=== PATIENT | male | born 1960 | race Caucasian/White ===

== ENCOUNTER → 2016-05-01 | Outpatient (CLI) | payer OTHER ==
--- NOTE | 2016-05-01 13:11 | MR ---
EXAMINATION TYPE: MR brain wo/w cspine wo DATE OF EXAM: 05/01/2016 11:48 AM COMPARISON: Prior MRI brain November 04, 2015. Prior MRI cervical spine July 05, 2015. HISTORY: MS, cervicalgia per order. Additional symptoms of dizziness with bilateral extremity weaknes s and numbness per patient. TECHNIQUE: Multiplanar, multisequence images of the cervical spine, brain, and brainstem are all performed witho ut and with IV contrast, utilizing 20 mL intravenous MultiHance gadolinium contrast is administered i ntravenously. Demyelinating disease protocol with additional Sagittal Flair sequence performed of th e brain and brainstem and PD sagittal sequence of cervical spine. Cervical imaging is performed witho ut contrast only. FINDINGS: BRAIN: T2 Lesions Present : Yes Approximate Number of Lesions: Multiple scattered estimated 50-60 small lesions Locations Identified : No infratentorial involvement seen. Scattered subcortical, deep, and periventr icular lesions present. Size of Reference Lesion(s): 1. 0.5 cm x 0.4 cm x 0.7 cm on axial image 19 and sagittal image 9 likely stable, prior study measur ed adjacent lesions is single lesion left posterior frontal subcortical level. 2 1.0 cm x 0.6 cm x 0.5 cm on axial image 19 and sagittal image 32 right frontal subcortical lesion stable. Enhancing Lesion(s) Present: No T1 Hypointense Lesion(s) Present: Yes Change from Prior: Stable Diffusion weighted images demonstrate no evidence of a recent infarct or other diffusion abnormality. There is no worrisome extra-axial fluid collection. The ventricular system and cisternal spaces ar e normal in size and appearance. The brain volume is age appropriate. Midline structures demonstrate normal morphology. The craniocervical junction appears within normal limits. Post contrast images demonstrate no abnormal enhancement. The dural venous sinuses appear pa tent. Mild mucosal thickening ethmoid sinuses bilaterally are redemonstrated. Globes are intact bilat erally. IMPRESSION: Moderate to severe white matter changes presumed predominantly on basis of patient's know n multiple sclerosis redemonstrated. No significant change from prior study. No new or enhancing lesi ons are clearly seen. C-SPINE: FINDINGS: Sagittal images of the cervical spine show the craniocervical junction to appear within nor mal limits. The cervical and upper thoracic spinal cord is normal in course, caliber, and signal on current study. Faint areas of increased signal are not evident to me. There is persistent slight grad e 1 retrolisthesis of C5 on C6 and C6 on C7. The vertebral body heights are normal. Moderate disc sp eda narrowing and spurring C5-C6 and C6-C7 levels is redemonstrated. Heterogeneous increased T1 and T 2 signal consistent with Modic type II degenerative changes seen at these levels. Axial images show the C2-C3 level to remain within normal limits. Axial images at C3-C4 level show uncovertebral facet degenerative changes bilaterally causing moderat e to severe left and mild right-sided neural foraminal narrowing, some progression on the left side f rom prior study is felt present. Axial images at C4-C5 level show uncovertebral facet degenerative changes causing mild left greater t rodriguez right neural foraminal narrowing. Small central disc protrusion mildly effaces anterior thecal sa c. Axial images at the C5-C6 level show spondylolisthesis and broad-based posterior disc protrusion with posterior spurring effacing anterior thecal sac and causing moderate to advanced bilateral neural fo raminal narrowing. No significant change from prior study is seen. Axial images at C6-C7 level show broad-based central disc protrusion and spondylolisthesis mildly eff acing anterior thecal sac and causing moderate to advanced bilateral neural foraminal narrowing. Axial images at C7-T1 level are felt within normal limits. IMPRESSION: Multilevel degenerative changes in the cervical spine most prominent at C5-C6 and C6-C7 l evel are redemonstrated. Some progression in degenerative findings in the upper to mid cervical spine are noted. No convincing evidence of demyelinating disease involvement in the cervical spine on curr ent study.
== END | disposition home or self-care (01) ==
LOC: RADMRIMAIN 09:57
PROVIDERS: ATTEND Psychiatry & Neurology Neurology
DX: G35 Multiple sclerosis (principal); M47.812 Spondylosis without myelopathy or radiculopathy, cervical region
CPT/HCPCS: 70553; 72141; A9577

== ENCOUNTER → 2016-05-02 | Outpatient (CLI) | payer OTHER ==
--- NOTE | 2016-05-02 11:35 | MR ---
EXAMINATION TYPE: MR tspine/lspine wo con DATE OF EXAM: 05/02/2016 11:17 AM COMPARISON: MRI thoracic spine November 22, 2014 HISTORY: MS, pain and weakness in back and extremities TECHNIQUE: Multiplanar, multisequence imaging of thoracic and lumbar spine are performed without cont rast FINDINGS: T-SPINE: Spinal cord shows normal course, caliber, and signal as it courses the thoracic spine. Vertebral bod y heights and alignment are satisfactory. Disc space heights are maintained. Some scattered small Nubia morl nodes in the lower thoracic spine are noted. Small posterior disc herniation T2-T3 level is rede monstrated on sagittal image 9. Mild heterogeneous endplate changes at this level are again seen. No significant spurring is present. Note is made of endplate changes with disc space narrowing and poste rior disc herniations effacing anterior thecal sac C5-C6 and C6-C7 level, findings correlate with MRI cervical spine July 05, 2015. Review of the axial images shows no significant spinal canal stenosis or neural foraminal narrowing a t any thoracic level. Small disc herniations T3-T4 and T4-T5 levels on prior study are not clearly id entified on current study. Area of possible abnormal spinal cord signal right T11 level is not eviden t on today's study. Note is made of 1.2 cm lesion in hepatic dome on axial image 9 which correlates w ith prior liver MRI and prior thoracic spine MRI. IMPRESSION: No evidence of demyelinating disease involvement in the thoracic spine. Stable small post erior disc herniation T2-T3 level is felt stable. L-SPINE: FINDINGS: Sagittal images of the lumbar spine show vertebral body heights and alignment to appear sat isfactory. Multilevel disc desiccation is seen with relative sparing of L1-L2 level. There is advance d disc space narrowing with heterogeneous increased T1 and T2 signal consistent with Modic type II de generative change at T12-L1 level. There is mild disc space narrowing L2-L3 level. There is moderate to advanced disc space narrowing with vacuum disc phenomenon at L4-L5 and L5-S1 levels. Heterogeneous endplate changes in the mid to lower lumbar spine are present. The conus medullaris is normal in sli ghtly lower in position ending at superior L2 vertebral body level. No suspicious clumping of lumbosa cral nerve roots is identified. The bone marrow signal intensity is within normal limits. Bladder wa ll is noted to have mild concentric wall thickening on survey image, correlation for outlet obstructi on related to enlarged prostate gland is advised. Axial images at the T12-L1 level shows mild facet degenerative changes and mild broad disc bulge mild ly effacing the anterior thecal sac, bilateral neural foramina remain patent. Axial images at the L1-L2 and L2-L3 levels show mild facet degenerative changes otherwise are felt wi thin normal limits. Axial images at the L3-L4 level show mild broad based posterior disc protrusion minimally effacing th e anterior thecal sac and mild to moderate facet degenerative changes bilaterally. There is mild bila teral anterior inferior neural foraminal narrowing at this level identified. Axial images at the L4-L5 level show moderate facet degenerative changes bilaterally. There is modera te broad disc bulge seen. There is mild effacement of the anterior thecal sac. There is moderate bila teral neural foraminal narrowing noted. Axial images at the L5-S1 level show moderate facet degenerative changes bilaterally. There is centra l disc protrusion seen. Spinal canal is fairly well preserved. There is moderate to advanced bilatera l neural foraminal narrowing, some encroachment on both L5 nerves is suspected on sagittal image 1 an d 02/03 respectively. Asymmetric atrophy of the right kidney is noted. Finding correlates with MRI liver April 22, 2015. IMPRESSION: Multilevel degenerative changes in the lumbar spine with findings most pronounced at T12- L1, L4-L5, and L5-S1 levels. Encroachment on both L5 nerves is felt present. Further details are note d as discussed above.
== END | disposition home or self-care (01) ==
LOC: RADMRIMAIN 10:00
PROVIDERS: ATTEND Psychiatry & Neurology Neurology
DX: M47.817 Spondylosis without myelopathy or radiculopathy, lumbosacral region (principal); M47.814 Spondylosis without myelopathy or radiculopathy, thoracic region
CPT/HCPCS: 72146; 72148

== ENCOUNTER → 2016-09-11 | Outpatient (CLI) | payer OTHER ==
--- NOTE | 2016-09-11 22:23 | MR ---
EXAMINATION TYPE: MR brain wo/w con DATE OF EXAM: 09/11/2016 COMPARISON: Prior MRI brain May 01, 2016. HISTORY: Numbness, Blurry Vision, Eye Twitch Hx of MS TECHNIQUE: Multiplanar, multisequence images of the brain and brainstem is performed without and with IV contras t, utilizing 20 mL intravenous MultiHance gadolinium contrast is administered intravenously. Demyeli nating disease protocol with additional Sagittal Flair sequence performed. FINDINGS: T2 Lesions Present : Yes Approximate Number of Lesions: 50-60 Locations Identified : Scattered predominantly Deep and periventricular lesions Size of Reference Lesion(s): 1. 0.5 cm x 0.5 cm x 0.5 cm on axial image 21 and sagittal image 7 posterior left frontal lesion sta ble from prior. 2 0.9 cm x 0.4 cm x 0.5 cm on axial image 22 and sagittal image 30 posterior right frontal lesion s table from prior Enhancing Lesion(s) Present: No Change from Prior: Stable Diffusion weighted images demonstrate no evidence of a recent infarct or other diffusion abnormality. There is no worrisome extra-axial fluid collection. The ventricular system and cisternal spaces ar e normal in size and appearance. The brain volume is age appropriate. Midline structures demonstrate normal morphology. The craniocervical junction appears within normal limits. Post contrast images demonstrate no abnormal enhancement. The dural venous sinuses appear pa tent. The visualized sinuses are clear and the globes are intact. IMPRESSION: Moderate to severe nonspecific white matter changes redemonstrated. No new or enhancing l esions are seen. No significant change from prior MRI study.
== END | disposition home or self-care (01) ==
LOC: RADMRIMAIN 14:58
PROVIDERS: ATTEND Psychiatry & Neurology Neurology
DX: R90.89 Other abnormal findings on diagnostic imaging of central nervous system (principal)
CPT/HCPCS: 70553; A9577

== ENCOUNTER → 2016-12-26 | Outpatient (CLI) | payer OTHER ==
[2016-12-26 10:15] LABS: Basophils % (A) 1 %; CH 30.4; CHCM 33.4; Eosinophils # (A) 0.1 k/uL (0-0.7); Eosinophils % (A) 2 %; HCT 47.9 % (39.0-53.0); HDW 2.36; HGB 15.9 gm/dL (13.0-17.5); Luc # (Auto) 0.15; Luc % (Auto) 2; Lymphocytes # (A) 1.1 k/uL (1.0-4.8); Lymphocytes % (A) 15 %; MCH 30.4 pg (25.0-35.0); MCHC 33.2 g/dL (31.0-37.0); MCV 91.4 fL (80.0-100.0); Mean Platelet Volume 7.9; Monocytes # (A) 0.5 k/uL (0-1.0); Monocytes % (A) 7 %; Neutrophils # (A) 5.4 k/uL (1.3-7.7); Neutrophils % (A) 74 %; RBC 5.24 m/uL (4.30-5.90); RDW 12.8 % (11.5-15.5); WBC 7.2 k/uL (3.8-10.6); WBC (Perox) 7.07
[2016-12-26 13:44] LABS: ALT 55 U/L (21-72); AST 33 U/L (17-59); Alkaline Phosphatase 84 U/L (38-126); Anion Gap 11 mmol/L; Blood Urea Nitrogen 15 mg/dL (9-20); Calcium 9.9 mg/dL (8.4-10.2); Carbon Dioxide 26 mmol/L (22-30); Chloride 106 mmol/L (98-107); Glucose 83 mg/dL (74-99); Non-African American GFR(MDRD) >60 (>60 ml/min/1.73 sqM); Potassium 4.6 mmol/L (3.5-5.1); Sodium 143 mmol/L (137-145); Total Bilirubin 0.5 mg/dL (0.2-1.3); Total Protein 7.2 g/dL (6.3-8.2)
[2016-12-26 15:11] LABS: Vitamin B12 400 pg/mL (239-931)
== END | disposition home or self-care (01) ==
LOC: LABWHC1 09:39
PROVIDERS: ATTEND Nurse Practitioner Acute Care
DX: G35 Multiple sclerosis (principal)
CPT/HCPCS: 36415; 80053; 82306; 82607; 84207; 84439; 84443; 84481; 85025

== ENCOUNTER → 2017-06-18 | Outpatient (CLI) | payer MEDICARE ==
--- NOTE | 2017-06-18 23:29 | MR ---
EXAMINATION TYPE: MR brain/cspine wo/w DATE OF EXAM: 06/18/2017 COMPARISON: Prior MRI brain September 11, 2016. Prior MRI cervical spine May 01, 2016. HISTORY: Multiple sclerosis and cervicalgia per Order. Numbness with dizziness or hearing loss per [facility]. Headache with neck pain since March 19, 2014 after fall down injury with pain and weakness into both arms and fingers per patient. TECHNIQUE: Multiplanar, multisequence images of the cervical spine, brain, and brainstem are all performed witho ut and with IV contrast, utilizing 10 mL intravenous Gadavist gadolinium contrast is administered int ravenously. Demyelinating disease protocol with additional Sagittal Flair sequence performed of the brain and brainstem and PD sagittal sequences of cervical spine all acquired. FINDINGS: BRAIN: T2 Lesions Present : Yes Approximate Number of Lesions: 50-60 Locations Identified : Scattered deep and periventricular lesions Size of Reference Lesion(s): 1. 0.6 cm x 0.7 cm x 0.6 cm on axial image 18 and sagittal image 4 posterior left frontal lesion sta ble 2 0.7 cm x 0.5 cm x 0.5 cm on axial image 20 and sagittal image 27 posterior right frontal lesion stable Enhancing Lesion(s) Present: No T1 Hypointense Lesion(s) Present: Yes Change from Prior: Stable Diffusion weighted images demonstrate no evidence of a recent infarct or other diffusion abnormality. There is no worrisome extra-axial fluid collection. The ventricular system and cisternal spaces ar e normal in size and appearance. The brain volume is age appropriate. Midline structures demonstrate normal morphology. The craniocervical junction appears within normal limits. Post contrast images demonstrate no abnormal enhancement. The dural venous sinuses appear pa tent. There is partial visualization mucous retention cyst or polyp in inferior right maxillary sinus otherwise paranasal sinuses remain clear. The globes are intact bilaterally. IMPRESSION: Stable moderate to severe nonspecific white matter changes most likely on basis of known multiple sclerosis. No new or enhancing lesions are seen. C-SPINE: FINDINGS: Sagittal images of the cervical spine show the craniocervical junction to remain within nor mal limits. The cervical and upper thoracic spinal cord is normal in course, caliber, and signal on current study. There is stable subtle grade 1 retrolisthesis C5 on C6 and C6 on C7. The vertebral bod y heights remain normal. There is moderate disc space narrowing and spurring C5-C6 and C6-C7 levels w ith heterogeneous endplate changes redemonstrated. No suspicious postcontrast enhancement is seen. So me motion artifact noted on sagittal postcontrast images. Axial images show the C2-C3 level to remain within normal limits. Axial images at C3-C4 level show uncovertebral facet degenerative changes bilaterally along with tiny central disc protrusion. There is mild effacement anterior thecal sac. There is moderate to severe l eft and mild right-sided neural foraminal narrowing redemonstrated. No significant change from prior. Axial images at C4-C5 redemonstrate central disc protrusion mildly effacing the anterior thecal sac. Uncovertebral facet degenerative changes are redemonstrated bilaterally. There is mild left greater t rodriguez right bilateral neural foraminal narrowing. There is no significant change from prior. Axial images at C5-C6 level shows spondylolisthesis and broad-based posterior disc protrusion effaces the anterior thecal sac and causing moderate to severe bilateral neural foraminal narrowing. No sign ificant change from prior. Axial images at C6-C7 level spondylolisthesis and broad-based posterior disc protrusion effacing ante rior thecal sac and causing moderate bilateral neural foraminal narrowing. No significant change from prior. Axial images at C7-T1 level are felt within normal limits. IMPRESSION: Multilevel degenerative changes in the cervical spine most prominent at C5-C6 level as de tailed above. No evidence of demyelinating disease involvement in the cervical spinal cord currently. No significant change from prior MRI.
== END | disposition home or self-care (01) ==
LOC: RADMRIMAIN 20:28
PROVIDERS: ATTEND Psychiatry & Neurology Neurology
DX: R90.82 White matter disease, unspecified (principal); G35 Multiple sclerosis; M47.812 Spondylosis without myelopathy or radiculopathy, cervical region
CPT/HCPCS: 70553; 72156; A9581